=== PATIENT | male | born 1950 | race Caucasian/White ===

== ENCOUNTER 2023-06-17 17:24 | Emergency (ER) | payer OTHER, SELFPAY ==
[2023-06-17] VITALS (23 sets, daily range): BP systolic 102–209; BP diastolic 73–130; PULSE 51–97; RESP 11–23; TEMP 36.5–36.7; O2SAT 91–100; BMI 26.8
--- NOTE | 2023-06-17 17:26 | CT_ITS ---
We are attempting to reach an attending provider to discuss findings. An addendum with communication details will be sent when the communication is complete. STUDY: CT BRAIN WITHOUT CONTRAST REASON FOR EXAM: Male, 72 years old. Neuro deficit, acute, stroke suspected RADIATION DOSAGE (If Supplied By Facility): CTDIvol = ( ) mGy, DLP = ( 1625.96 ) mGycm TECHNIQUE: Transaxial CT imaging of the brain was performed without administration of intravenous contrast material. Individualized dose optimization techniques were used for this CT. COMPARISON: No relevant priors. FINDINGS: Normal soft tissue structures. Normal calvarium. Intracranial atherosclerosis. There is moderate cerebral atrophy with widening of the extra-axial spaces and ventricular dilatation. There are areas of decreased attenuation within the white matter tracts of the supratentorial brain, consistent with microvascular disease changes. Normal basal ganglia and thalami. Normal brainstem. Normal cerebellum. Increased density near the top of the basilar artery. There is no intracranial hemorrhage. There are no findings of an acute ischemic infarction. Normal visualized paranasal sinuses. CT/STROKE Brain/Head without Cont IMPRESSION: Basilar artery tip thrombosis versus artifact Electronically Signed: Graeme Rodriguez MD at 17:59 EST ,
--- NOTE | 2023-06-17 17:26 | EKG12_ITS ---
Test Reason : CVA Blood Pressure : / mmHG Vent. Rate : 064 BPM Atrial Rate : 064 BPM P-R Int : 170 ms QRS Dur : 098 ms QT Int : 452 ms P-R-T Axes : 043 -05 037 degrees QTc Int : 466 ms Sinus rhythm with occasional Premature ventricular complexes Nonspecific ST and T wave abnormality Prolonged QT Abnormal ECG Confirmed by LETY BARR, KADE ([id number]), editorial writer AMANDA CHEN ([id number]) on 06/19/2023 8:36:11 AM Referred By: RUBIN Confirmed By:KADE DAVIDSON MD
--- NOTE | 2023-06-17 17:26 | CT_ITS ---
We are attempting to reach an attending provider to discuss findings. An addendum with communication details will be sent when the communication is complete. STUDY: CTA HEAD AND NECK WITH CONTRAST REASON FOR EXAM: Male, 72 years old. Neuro deficit, acute, stroke suspected RADIATION DOSAGE (If Supplied By Facility): CTDIvol = ( 30.04 ) mGy, DLP = ( 683.88 ) mGycm TECHNIQUE: CT angiography was performed with a multi-detector CT scanner. Data acquisition was obtained from the skull base through the vertex following intravenous administration of IV 100mL Isovue-370. MIP images were reconstructed from the axial data set. Post-processing of the angiographic images was performed, with multiplanar reformation and 3D reconstruction. Individualized dose optimization techniques were used for this CT. COMPARISON: No relevant priors. FINDINGS: Normal bilateral petrous carotid arteries. Normal right cavernous carotid artery with a normal supraclinoid bifurcation. Normal left cavernous carotid artery with a normal supraclinoid bifurcation. Normal right A1 segments of the anterior cerebral artery. Normal left A1 segments of the anterior cerebral artery. Normal intact anterior communicating artery (ACOM). Normal bilateral A2 segments of the anterior cerebral arteries. Normal right M1 and M2 segments of the middle cerebral arteries, with a normal M1 bifurcation. Normal left M1 and M2 segments of the middle cerebral arteries, with a normal M1 bifurcation. There is non-visualization of the right posterior communicating artery (PCOM). There is non-visualization of the left posterior communicating artery (PCOM). Normal bilateral vertebral arteries. Filling defect distal tip of the basilar artery extending into the left posterior cerebral artery.. The visualized bilateral superior cerebellar (SCA) arteries are normal. Normal right P1, P2 and visualized P3 segments of the posterior cerebral arteries. Left posterior cerebral artery appears to be occluded at its origin at the top of the basilar artery. There is no demonstrated aneurysm of the yurok of [place]. There is no demonstrated abnormality of the visualized brain. AORTIC ARCH: Normal visualized aortic arch. Normal origins of the brachiocephalic, left common carotid, and left subclavian arteries. RIGHT CAROTID ARTERIES: Normal right common carotid artery (CCA). There is extensive atherosclerotic plaque formation with severe narrowing of the right carotid bulb with a hemodynamically significant stenosis. There is severe atherosclerotic plaque formation of the origin of the right internal carotid artery with a near complete occlusion. Normal visualized cervical portion of the right internal carotid artery. Normal origin of the right external carotid artery (ECA). LEFT CAROTID ARTERIES: Normal left common carotid artery (CCA). There is mild atherosclerotic plaque formation with minimal narrowing of the left carotid bulb. There is mild atherosclerotic plaque formation of the origin of the left internal carotid artery with less than 50% cross sectional diameter stenosis. Normal visualized cervical portion of the left internal carotid artery. Normal origin of the left external carotid artery (ECA). VERTEBRAL ARTERIES: [Mixed plaque at the origin of the right vertebral artery. Plaque is noted at the origin of the left vertebral artery with possible stenosis although detail is obscured by local beam hardening artifact. Incidental note is made of a possible central filling defect of the jugular vein on the left near the skull base. This may also represent flow artifact. Ultrasound may be helpful. 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 Critical stenosis proximal right ICA due to mixed plaque. Stenosis and plaque at the origin of the vertebral arteries bilaterally. Possible jugular venous thrombosis. Recommend ultrasound of the neck. Electronically Signed: Graeme Rodriguez MD at 18:14 [facility] ,
[2023-06-17 17:38] LABS: Absolute Lymphocyte Count 0.98 X10^3/uL (0.83-4.51); Absolute Neutrophil Count 3.4 X10^3/uL (2.0-7.7); Basophil# 0.02 X10^3/uL; Basophil% 0.4 % (0-1); Eosinophil# 0.03 X10^3/uL; Eosinophils% 0.6 % (0-5); Hematocrit 40.3 % (40-54); Hemoglobin 13.1 g/dL (13.0-16.5); Lymphocyte # 0.98 X10^3/ul (0.83-4.51); Lymphocyte % 20.2 % (19-41); Mean Corp Hgb Conc 32.5 g/dL (32-36); Mean Corpuscular Hgb 30.5 pg (27.0-32.0); Mean Corpuscular Volume 93.9 fL (80-94); Mean Platelet Vol. 10.2 fl (6.2-12.0); Monocyte% 8.2 % (0-10); NRBC Flagged by Analyzer 0 % (0-5); Neutrophil # 3.43 X10^3/uL (2.7-7.7); Neutrophil % 70.6 % (47-70); Platelet Count 247 K/mm3 (150-450); RBC Distribution Width CV 12.9 % (11.6-14.6); Red Blood Count 4.29 M/mm3 (4.6-6.2); White Blood Count 4.9 K/mm3 (4.4-11.0)
[2023-06-17] MEDS: Labetalol (Prefilled) 20 MG/4 ML IV (17:45)
[2023-06-17 17:47] LABS: International Normalized Ratio 1.1; Partial Thromboplast Time 30.6 Seconds (24.1-36.2); Prothrombin Time (Protime)PT. 13.9 SECONDS (11.7-14.9)
--- NOTE | 2023-06-17 17:55 | ED.RN ---
PT NOTED TO BE 87% ON ROOM AIR. O2 APPLIED WITH NO IMPROVEMENT, RESP. THERAPY APPLIED A VENTI MASK
[2023-06-17 17:59] LABS: Anion Gap 5 (5-15); BUN 34 mg/dL (7-18); BUN/Creat Ratio 20.6 RATIO (10-20); Calcium,Total 9.7 mg/dL (8.5-10.1); Chloride 112 mmol/L (98-107); Creatinine, Serum 1.65 mg/dL (0.70-1.30); EST Glomerular Filtration Rate 44 mL/min (>60); Est Glom Filt Rate - Afr Amer 53 mL/min (>60); Estimated Creatinine Clearance 49.08 ml/min; Glucose 146 mg/dL (74-106); Potassium 3.9 mmol/L (3.5-5.1); Sodium Level 144 mmol/L (136-145); Troponin-I HS 172 pg/mL (3.0-78.0)
--- NOTE | 2023-06-17 17:59 | ED.RN ---
DR CONKLIN NOTIFIED [id number]
[2023-06-17] MEDS: 0.9% Saline Lock 10 ML Syringe IV ×2 (18:07→18:09)
[2023-06-17] MEDS: TENECTEPLASE 3499.19999999999982 MG IV (18:08)
--- NOTE | 2023-06-17 18:40 | RAD_ITS ---
STUDY: X-RAY CHEST REASON FOR EXAM: Male, 72 years old. Neuro deficit, acute, stroke suspected TECHNIQUE: Single frontal view of the chest. COMPARISON: None. FINDINGS: Right lower lobe interstitial infiltrate and effusion. There is no demonstrated pleural abnormality. Normal size heart. Normal mediastinum and essence. Normal visualized pulmonary arteries. Normal visualized aortic arch and descending thoracic aorta. Normal visualized thoracic spine. Normal visualized ribs, clavicles, and shoulders. There is no demonstrated abnormality of the visualized soft tissue structures of the upper abdomen. RAD/Chest 1 View IMPRESSION: Right lower lobe infiltrate and effusion Electronically Signed: Graeme Rodriguez MD at 20:09 EST ,
--- NOTE | 2023-06-17 18:45 | ED.RN ---
pt requires a sternal rub to be responsive at all. dr. styles notified.
[2023-06-17] MEDS: 0.9% Normal Saline (1000mL) 1,000 ML 100 ML IV (18:59)
[2023-06-17] MEDS: Etomidate 20 MG/10 ML Vial IV (19:14)
[2023-06-17] MEDS: Succinylcholine Chloride 200 MG/10 ML Vial 100 MG IV (19:15)
[2023-06-17] MEDS: Propofol 10MG/Ml 1,000 MG/100 ML Bottle 5.79999999999999982 MG CONT INF (19:20)
--- NOTE | 2023-06-17 19:35 | RAD_ITS ---
STUDY: X-RAY CHEST REASON FOR EXAM: Male, 72 years old. intubation TECHNIQUE: Single frontal view of the chest. COMPARISON: 6:32 PM today FINDINGS: New ET tube terminates 2.8 cm above the brian. Enteric tube terminates in the stomach. Moderate interstitial infiltrates and edema increased. There is no demonstrated pleural abnormality. Normal size heart. Normal mediastinum and essence. Normal visualized pulmonary arteries. Normal visualized aortic arch and descending thoracic aorta. Normal visualized thoracic spine. Normal visualized ribs, clavicles, and shoulders. There is no demonstrated abnormality of the visualized soft tissue structures of the upper abdomen. RAD/Chest 1 View (Portable) IMPRESSION: Increasing infiltrates and edema. Life-support apparatus as above. Electronically Signed: Graeme Rodriguez MD at 20:37 EST ,
--- NOTE | 2023-06-17 19:47 | ED.RN ---
unable to safely perform swallow eval on this pt.
--- NOTE | 2023-06-17 19:57 | ED.RN ---
THIS RN RECEIVED A PHONE CALL [facility] REPORTS THAT THEY HAVE TRIED TO OUTSOURCE. [facility], JOSE PAUL, 08/01, [place]. PHYSICIANS ETA FOR AT 1750 WAS 90 MINUTES TO 2 HOURS.
[2023-06-17 20:06] LABS: CPK Total, Creatine Kinase 165 U/L (39-308); Triglycerides 110 mg/dL
[2023-06-17] MEDS: fentaNYL drip 100 ML 5 MCG CONT INF (20:07)
[2023-06-17] MEDS: Ampicillin/Sulbactam 3 GM in 0.9% Normal Saline (100mL MB+) 100 ML IV (21:22)
--- NOTE | 2023-06-17 23:02 | ED.VIS.STROK ---
HPI History of Present Illness Chief Complaint: Stroke Alert Informant: spouse/S.O., family and EMS Narrative Narrative: 72-year-old Yarsanism male presenting to the emergency room as a prehospital stroke alert. states that around 1645 1700 hrs. tonight she was talking with him when he suddenly became fatigued and had right-sided paralysis. EMS was called. They notified the hospital of a potential stroke. states that he has had prior stents to his heart she believes a total of 5 and these were at [place] in [place]. She states he does not take any blood thinners only the occasional aspirin and some Yarsanism herbal medicines. Patient himself cannot provide any meaningful information. No known direct trauma. [facility] Medical History Coronary artery disease Diabetes mellitus Home Medications NK 06/17/23 [History Last Taken Unknown] Allergy/AdvReac Type Severity Reaction Status Date / Time No Known Allergies Allergy Verified 06/17/23 17:29 Surgical History Stented coronary artery Social History Smoking Status: Never smoker ROS ROS ED Review of Systems ROS Unobtainable: due to mental status EXAM Physical Exam Const Vital Signs: 06/17/23 17:32 06/17/23 17:26 06/17/23 17:37 Temperature 97.7 F L Temperature Source Temporal Pulse Rate 68 Respiratory Rate 12 Blood Pressure 196/117 H Blood Pressure Mean 143 Blood Pressure Source Blood Pressure Position Blood Pressure Location Pulse Ox 91 Oxygen Delivery Method Room Air Room Air Room Air Fraction of Inspired Oxygen (FIO2) 06/17/23 17:26 06/17/23 17:53 06/17/23 17:56 Temperature Temperature Source Pulse Rate 75 72 62 Respiratory Rate 20 H 14 11 L Blood Pressure 209/101 H 175/94 H 175/94 H Blood Pressure Mean 137 121 121 Blood Pressure Source Blood Pressure Position Blood Pressure Location Pulse Ox 98 96 99 Oxygen Delivery Method Venturi Mask Venturi Mask Venturi Mask Fraction of Inspired Oxygen (FIO2) 06/17/23 18:08 06/17/23 18:01 06/17/23 18:16 Temperature Temperature Source Pulse Rate 67 76 Respiratory Rate 17 15 Blood Pressure 178/97 H 163/90 H 163/93 H Blood Pressure Mean 114 116 Blood Pressure Source Monitor Monitor Blood Pressure Position Semi-Fowlers Semi-Fowlers Blood Pressure Location Left Arm Left Arm Pulse Ox 95 96 Oxygen Delivery Method Venturi Mask Room Air Fraction of Inspired Oxygen (FIO2) 06/17/23 18:31 06/17/23 18:46 06/17/23 19:01 Temperature Temperature Source Pulse Rate 72 65 61 Respiratory Rate 18 21 H 18 Blood Pressure 167/82 H 173/87 H 161/96 H Blood Pressure Mean 110 115 117 Blood Pressure Source Monitor Monitor Monitor Blood Pressure Position Semi-Fowlers Semi-Fowlers Semi-Fowlers Blood Pressure Location Left Arm Left Arm Pulse Ox 95 96 96 Oxygen Delivery Method Venturi Mask Venturi Mask Venturi Mask Fraction of Inspired Oxygen (FIO2) 06/17/23 19:16 06/17/23 19:31 06/17/23 19:46 Temperature Temperature Source Pulse Rate 75 75 66 Respiratory Rate 20 H 21 H 23 H Blood Pressure 161/98 H 143/130 H 141/90 H Blood Pressure Mean 119 134 107 Blood Pressure Source Monitor Monitor Monitor Blood Pressure Position Semi-Fowlers Semi-Fowlers Semi-Fowlers Blood Pressure Location Left Arm Right Arm Left Arm Pulse Ox 98 96 98 Oxygen Delivery Method Mechanical Ventilator Mechanical Ventilator Fraction of Inspired Oxygen (FIO2) 06/17/23 20:00 06/17/23 20:01 06/17/23 20:18 Temperature Temperature Source Pulse Rate 62 59 L 57 L Respiratory Rate 15 15 13 Blood Pressure 114/79 119/79 127/78 H Blood Pressure Mean 90 92 94 Blood Pressure Source Monitor Blood Pressure Position Semi-Fowlers Blood Pressure Location Left Arm Pulse Ox 100 100 100 Oxygen Delivery Method Mechanical Ventilator Mechanical Ventilator Mechanical Ventilator Fraction of Inspired Oxygen (FIO2) 100 100 100 06/17/23 20:28 06/17/23 21:01 06/17/23 21:13 Temperature Temperature Source Pulse Rate 62 56 L 56 L Respiratory Rate 17 14 16 Blood Pressure 103/81 H 102/73 121/80 H Blood Pressure Mean 88 82 93 Blood Pressure Source Monitor Monitor Blood Pressure Position Semi-Fowlers Semi-Fowlers Blood Pressure Location Left Arm Left Arm Pulse Ox 99 98 98 Oxygen Delivery Method Mechanical Ventilator Mechanical Ventilator Mechanical Ventilator Fraction of Inspired Oxygen (FIO2) 100 100 100 06/17/23 21:29 06/17/23 21:54 06/17/23 19:23 Temperature Temperature Source Pulse Rate 52 L 51 L 97 Respiratory Rate 14 15 16 Blood Pressure 115/73 116/74 Blood Pressure Mean 87 88 Blood Pressure Source Monitor Monitor Blood Pressure Position Semi-Fowlers Semi-Fowlers Blood Pressure Location Left Arm Left Arm Pulse Ox 96 97 92 Oxygen Delivery Method Mechanical Ventilator Mechanical Ventilator Fraction of Inspired Oxygen (FIO2) 100 100 100 06/17/23 22:29 Temperature 98.1 F Temperature Source Pulse Rate 53 L Respiratory Rate 16 Blood Pressure 121/73 H Blood Pressure Mean 89 Blood Pressure Source Blood Pressure Position Blood Pressure Location Pulse Ox 99 Oxygen Delivery Method Fraction of Inspired Oxygen (FIO2) Positive well nourished and well developed General Appearance ED: well developed HEENT Reports normocephalic, head/scalp atraumatic and moist mucous membranes HEENT Narrative: Patient does have some drooling and occasional cough. He does have a gag reflex. Eyes PERRL Eyes Narrative: I cannot get the patient to follow my finger. I am able to get him to look to the left but not the right. Neck no lymphadenopathy, supple and no JVD Resp normal respiratory effort and clear to auscultation bilaterally Cardio regular rate, regular rhythm and no murmurs GI normal to inspection, nondistended, normoactive bowel sounds and non-tender Palpation: soft Back/Spine no CVA tenderness and normal ROM Extremity normal to inspection General Extremety ED: Negative for edema General Extremity: Negative for edema Neuro Neuro Narrative: CNH exam Medicine Bow Coma Scale: document GCS findings To Voice Obeys Commands Incomprehensible 11 Sensorium / Orientation: lethargic Motor Exam: strength 5/5 throughout Skin no rashes or lesions noted and no wounds NIHSS NIHSS Initial: 1a Level of Consciousness: 1 1b LOC Questions (Score 2 if aphasic/stupor): 2 1c LOC Commands (Only score 1st attempt): 2 2 Best Gaze (If aphasic, use reflexive mvmts.): 1 3 Visual: 0 4 Facial Palsy: 3 5 Motor Arm Right (UN = amputation/fusion): 4 5 Motor Arm Left: 0 6 Motor Leg Right: 4 6 Motor Leg Left: 0 7 Limb ataxia (Only + if out of proportion): 0 8 Sensory (Aphasia/stupor=0 or 1, coma=2): 2 9 Best Language: 0 10 Dysarthria (mute, coma=2, intubated=UN): 2 11 Extinction and Inattention (only scored if +): 0 Total Score: 21 MDM MDM MDM Narrative Medical decision making narrative: I personally met the patient in the ambulance bay. He was taken directly to CT scan where the initial head CT did not show a intracranial hemorrhage. CTA of the brain was then performed. He was taken back into the room. I notified pharmacy of a potential tPA candidate. Tenecteplase was ordered to be maxed. I reviewed the CTA which is concerning for an LVO. I spoke with [facility] neurology and they performed an examination. We agreed that TNK should be given and was discussed with patient's who agrees with this and understands the risk benefits. Patient received labetalol for hypertension prior to the administration. Case was escalated to [facility] neurosurgery and it was felt the patient would be best served with transfer to [facility] for potential retrieval. Complicating transfers that he is Yarsanism and does not wish to fly however because the of weather in the area flight is not an option. The fastest available ground crew was not going to be available till around 2200 hrs. I discussed everything with the family and they note understanding. Patient developed increased cough rhonchorous lung sounds and was responsive really only to pain. I recommended intubation and they agreed. Concerned about possible aspiration and he received a dose of Unasyn. Findings were discussed with [facility]. We are currently awaiting transfer. My independent interpretation of the initial chest x-ray is mild pulmonary edema. My independent or potation of the second chest x-ray is status post intubation with adequate placement of endotracheal tube and OG tube. Increased markings right lower lobe worrisome for aspiration. History & Record Review Discussion w/independent historian: EMS personnel, Patient and Family Lab Data Attestation: I reviewed the patient's lab results. Labs: Laboratory Results - last 24 hr 06/17/23 17:14 WBC 4.9 RBC 4.29 L Hgb 13.1 Hct 40.3 MCV 93.9 MCH 30.5 MCHC 32.5 RDW Std Deviation 44.0 H RDW Coeff of Zenon 12.9 Plt Count 247 MPV 10.2 Immature Gran % (Auto) 0.000 Neut % (Auto) 70.6 H Lymph % (Auto) 20.2 Whitman % (Auto) 8.2 Eos % (Auto) 0.6 Baso % (Auto) 0.4 Absolute Neuts (auto) 3.4 Absolute Lymphs (auto) 0.98 Nucleated RBC % 0 PT 13.9 INR 1.1 APTT 30.6 Sodium 144 Potassium 3.9 Chloride 112 H Carbon Dioxide 27.0 Anion Gap 5 BUN 34 H Creatinine 1.65 H Estim Creat Clear Calc 49.08 Est GFR (MDRD) Af Amer 53 L Est GFR (MDRD) Non-Af 44 L BUN/Creatinine Ratio 20.6 H Glucose 146 H Calcium 9.7 Total Creatine Kinase 165 Troponin I High Sens 172 H* Triglycerides 110 Radiography Diagnostic Testing: Clinical Impression(s) from Imaging Studies Brain CT 06/17/23 17:26 IMPRESSION: Basilar artery tip thrombosis versus artifact Electronically Signed: Graeme Rodriguez MD at 17:59 EST Reading Location ID and State: [facility] / [place] Tel , Service support , ADDENDUM: 06/17/23 1840 IMPRESSION: Basilar artery tip thrombosis versus artifact N.B. : The above Results were Read Back by Graeme Rodriguez MD to Siva Dubois DO, and understanding confirmed on 06/17/2023 18:33:44 (ET). 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 Critical stenosis proximal right ICA due to mixed plaque. Stenosis and plaque at the origin of the vertebral arteries bilaterally. Possible jugular venous thrombosis. Recommend ultrasound of the neck. 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 Critical stenosis proximal right ICA due to mixed plaque. Stenosis and plaque at the origin of the vertebral arteries bilaterally. Possible jugular venous thrombosis. Recommend ultrasound of the neck. N.B. : The above Results were Read Back by Graeme Rodriguez MD to Siva Dubois DO, and understanding confirmed on 06/17/2023 18:33:55 (ET). Electronically Signed: Graeme Rodriguez MD at 18:14 EST , Chest X-Ray 06/17/23 18:40 IMPRESSION: Right lower lobe infiltrate and effusion Electronically Signed: Graeme Rodriguez MD at 20:09 EST Reading Location ID and State: [id number] / [place] Tel , Service support , Chest X-Ray 06/17/23 19:35 IMPRESSION: Increasing infiltrates and edema. Life-support apparatus as above. Electronically Signed: Graeme Rodriguez MD at 20:37 EST , EKG Initial EKG: Attestation: I personally reviewed and interpreted this EKG as follows: Comments: Sinus rhythm with a ventricular rate of 64 bpm. Critical Care Time Critical Care Time: Yes Critical care time (excluding procedures): 30-74 minutes (35 min), Including time spent:, Discussing w/Patient &/or Family/Autoclave Operator, Discussing w/Consultants, Arranging Admission or Transfer and Performing Direct Patient Care at Bedside Discharge Plan Triage Chief Complaint: Stroke Alert ED Provider: Siva Dubois Dx/Rx/DC Orders Clinical Impression: Acute stroke due to ischemia Prescriptions: No Action NK Primary Care Provider: Care Physician,No Primary Referrals: Care Physician,No Primary [Primary Care Provider] - Disposition Disposition: Acute Care Hospital Discharge Location: [facility] Discharge Date/Time: 06/17/23 22:37
== END 2023-06-17 22:37 | disposition short-term general hospital (02) ==
PROVIDERS: Emergency Provider Emergency Medicine; Visit Provider Emergency Medicine
DX: I63.231 Cerebral infarction due to unspecified occlusion or stenosis of right carotid arteries (principal); I63.22 Cerebral infarction due to unspecified occlusion or stenosis of basilar artery; E11.9 Type 2 diabetes mellitus without complications; I25.10 Atherosclerotic heart disease of native coronary artery without angina pectoris; Z95.5 Presence of coronary angioplasty implant and graft
CPT/HCPCS: 31500; 31720; 51702; 70450; 70496; 70498; 71045; 80048; 82550; 84478; 84484; 85025; 85610; 85730; 87040; 93005; 94002; 96365; 96375; 99252; 99285; J3101; J7030; Q9967; A4216; G0463; J0295; J0330